=== PATIENT | female | born 1940 | race Caucasian/White ===

== ENCOUNTER 2016-08-17 15:13 | Emergency (ER) | payer MEDICARE, OTHER ==
[2016-08-17 15:25] VITALS: TEMP 97.9
[2016-08-17] MEDS ORDERED: ONDANSETRON INJ 4 MG/2 ML VIAL IV ONE (15:30)
[2016-08-17] MEDS ORDERED: SODIUM CHLORIDE 0.9% (FLUSH) 10 ML SYG IV PRN (15:30)
--- NOTE | 2016-08-17 15:35 | ED.PDOC ---
History of Present Illness - General Source: patient, RN notes reviewed, Vital Signs reviewed Exam Limitations: no limitations - History of Present Illness Initial Comments: Patient reports pressure type chest pain that started about 4am this morning. She thought it was gas or indigestion so she tried antacids without improvement. Reports she is just feeling very weak with it. Had to stop in the middle of getting dressed to rest. At it's worst pain was 9/10, currently 5/10. + nausea with vomiting X2. Denies SOB or diaphoresis. Reports similar episode 15 years ago with negative cardiac work up at that time. Timing/Duration: 7-24 hours Severity/Quality: moderate, ingestion, pressure Location: substernal, epigastric Chest Pain Radiation: no radiation Activities at Onset: sleep Prior Chest Pain/Cardiac Workup: stress test Improving Factors: nothing Worsening Factors: other - activity Nitro Today/Relief: no nitro taken today Aspirin Treatment Today: 325 mg x 1 - X2, provided at home Associated Symptoms: fatigue, nausea/vomiting, weakness <Bina Barahona - Last Filed: 08/17/16 19:01> <Perri Amaya - Last Filed: 08/17/16 22:36> - General Chief Complaint: Chest Pain/TN Stated Complaint: CHEST PAIN Time Seen by Provider: 08/17/16 15:23 - History of Present Illness Allergies/Adverse Reactions: Allergies NO KNOWN ALLERGY Allergy (Unverified 12/21/13 09:21) Home Medications: Ambulatory Orders Furosemide Tab [Lasix Tab] 40 mg PO DAILY 12/21/13 HYDROcodone 10MG/APAP 325MG [[place] 10/325] 1 tab PO PRN 08/17/16 Review of Systems - Review of Systems Constitutional: States: malaise, weakness. Denies: chills, diaphoresis, fever EENTM: States: no symptoms reported Respiratory: States: no symptoms reported. Denies: short of breath Cardiology: States: see HPI, chest pain. Denies: palpitations, syncope Gastrointestinal/Abdominal: States: see HPI, nausea, vomiting. Denies: abdominal pain Musculoskeletal: States: no symptoms reported. Denies: back pain Skin: States: no symptoms reported Neurological: States: no symptoms reported. Denies: headache, numbness, paresthesia, pre-existing deficit, tingling, tremors Endocrine: Denies: no symptoms reported Hematologic/Lymphatic: Denies: no symptoms reported <Bina Barahona - Last Filed: 08/17/16 19:01> Past Medical History (General) - Patient Medical History Hx Cardiac Disorders: Yes Hx Congestive Heart Failure: No Hx Pacemaker: No Hx Hypertension: Yes Hx Diabetes: No Hx MRSA: No Surgical History: appendectomy - Vaccination History Hx Influenza Vaccination: Yes Hx Pneumococcal Vaccination: No - Social History Hx Tobacco Use: No Hx Alcohol Use: No Hx Substance Use: No Hx Physical Abuse: No Hx Emotional Abuse: No <Bina Barahona - Last Filed: 08/17/16 19:01> Family Medical History - Family History Mother Family History: Unknown Living Status: <Bina Barahona - Last Filed: 08/17/16 19:01> Physical Exam - Physical Exam General Appearance: Alert, Comfortable, No apparent distress, Well Developed, Well Groomed, Well Hydrated, Well Nourished Neck: non-tender, full range of motion, supple, normal inspection Respiratory: chest non-tender, lungs clear, normal breath sounds, no respiratory distress, no accessory muscle use Cardiovascular/Chest: normal peripheral pulses, regular rate, rhythm, no edema, no gallop, no JVD, no murmur Peripheral Pulses: dorsalis pedis,right: 2+, dorsalis pedis,left: 2+ Gastrointestinal/Abdominal: normal bowel sounds, non tender, soft, no organomegaly, no pulsatile mass Extremity: normal range of motion, non-tender, normal inspection, no pedal edema Neurologic: no motor/sensory deficits, alert, normal mood/affect, oriented x 3 Skin Exam: normal color, warm/dry Comments: Vital Signs - 24 hr 08/17/16 15:21 Temperature 97.9 F Pulse Rate [ 107 H Left Brachial] Respiratory 20 Rate Blood Pressure 156/98 [Left Arm] O2 Sat by Pulse 97 Oximetry <Bina Barahona - Last Filed: 08/17/16 19:01> Progress - Progress Progress: 08/17/16 16:11 Patient reports pain is almost gone after SLNTG X2. Feels like it wants to go away. Pain is currently /. 08/17/16 17:13 Initial w/u is negative. Will plan to recheck cardiac enzymes @ 18:40 08/17/16 19:[address] Amaya - EKG/XRAY/CT EKG: Sinus, Tachy, no ST T wave changes <Bina Barahona - Last Filed: 08/17/16 19:01> - Progress Progress: 08/17/16 22:29 Three sets of cardiac enzymes 3 hours apart were normal. Patient remained pain- free with stable vitals. Therefore, will discharge Patient home with close follow up with Dr. Barton. Althoug Patient had white blood cells in her urine, it also had epithelial cells, therefore I will not currently treat. Culture pending. 08/17/16 22:32 - Results/Orders Results/Orders: 08/17/16 08/17/16 08/17/16 15:21 15:51 16:21 Temperature 97.9 F Pulse Rate [ 107 H 107 H 100 H Left Brachial] Respiratory 20 16 Rate Blood Pressure 156/98 142/96 [Left Arm] O2 Sat by Pulse 97 93 L Oximetry 08/17/16 08/17/16 08/17/16 16:29 17:16 18:00 Temperature Pulse Rate [ 91 H 94 H Left Brachial] Respiratory 16 16 Rate Blood Pressure 155/94 161/99 [Left Arm] O2 Sat by Pulse 94 L 93 L 94 L Oximetry 08/17/16 08/17/16 19:56 19:57 Temperature 97.9 F Pulse Rate [ 90 90 Left Brachial] Respiratory 18 18 Rate Blood Pressure 152/93 152/93 [Left Arm] O2 Sat by Pulse 96 96 Oximetry 08/17/16 15:30 Telemetry .ONCE Sodium Chloride 0.9% (Flush) [Saline Flush Syringe] 10 ml IV PRN PRN EKG Stat Pulse Ox Stat 08/17/16 22:33 URINE CULTURE W/COLONY COUNT Stat Laboratory Results WBC 8.6 K/mm3 (4.8-10.8) 08/17/16 15:40 RBC 4.59 M/mm3 (4.20-5.40) 08/17/16 15:40 Hgb 13.7 gm/dL (12.0-16.0) 08/17/16 15:40 Hct 41.1 % (36.0-47.0) 08/17/16 15:40 MCV 89.6 fl (81.0-99.0) 08/17/16 15:40 MCH 30.0 pg (27.0-31.0) 08/17/16 15:40 MCHC 33.4 g/dL (33.0-37.0) 08/17/16 15:40 RDW 14.2 % (11.5-14.5) 08/17/16 15:40 Plt Count 261 K/mm3 (130-400) 08/17/16 15:40 MPV 7.8 fl (7.40-10.4) 08/17/16 15:40 Absolute Neuts (auto) 7.10 K/uL (1.8-6.8) H 08/17/16 15:40 Absolute Lymphs (auto) 0.90 K/uL (1.0-3.4) L 08/17/16 15:40 Absolute Monos (auto) 0.40 K/uL (0.2-0.8) 08/17/16 15:40 Absolute Eos (auto) 0.10 K/uL (0.0-0.4) 08/17/16 15:40 Absolute Basos (auto) 0.00 K/uL (0.0-0.1) 08/17/16 15:40 Neutrophils % 82.7 % (42.0-78.0) H 08/17/16 15:40 Lymphocytes % 10.8 % (20.0-50.0) L 08/17/16 15:40 Monocytes % 5.1 % (2.0-9.0) 08/17/16 15:40 Eosinophils % 0.9 % (1.0-5.0) L 08/17/16 15:40 Basophils % 0.5 % (0.0-2.0) 08/17/16 15:40 PT 11.2 SECONDS (9.4-12.5) 08/17/16 15:40 INR 0.990 08/17/16 15:40 PTT (SP) 31.4 SECONDS (25.1-36.5) 08/17/16 15:40 D-Dimer, Quantitative 266 ng/mL (0-230) H* 08/17/16 15:40 Sodium 137 mmol/L (135-145) 08/17/16 15:40 Potassium 3.7 mmol/L (3.6-5.0) 08/17/16 15:40 Chloride 104 mmol/L (101-111) 08/17/16 15:40 Carbon Dioxide 29 mmol/L (21-31) 08/17/16 15:40 Anion Gap 7.7 (12-18) L 08/17/16 15:40 BUN 14 mg/dL (7-18) 08/17/16 15:40 Creatinine 0.59 mg/dL (0.6-1.3) L 08/17/16 15:40 BUN/Creatinine Ratio 23.7 (10-20) H 08/17/16 15:40 Random Glucose 110 mg/dL (70-105) H 08/17/16 15:40 Serum Osmolality 274.9 mOsm/L (275-295) L 08/17/16 15:40 Calcium 8.8 mg/dL (8.4-10.2) 08/17/16 15:40 Magnesium 2.1 mg/dL (1.8-2.5) 08/17/16 15:40 Total Bilirubin 0.6 mg/dL (0.2-1.0) 08/17/16 15:40 Direct Bilirubin < 0.1 mg/dL (0-0.2) 08/17/16 15:40 Indirect Bilirubin 0.5 mg/dL (0.2-0.8) 08/17/16 15:40 AST 44 IU/L (10-42) H 08/17/16 15:40 ALT 44 IU/L (10-60) 08/17/16 15:40 Alkaline Phosphatase 58 IU/L (42-121) 08/17/16 15:40 Creatine Kinase 38 IU/L (26-140) 08/17/16 21:50 CK-MB (CK-2) 1.7 ng/mL (0.0-4.4) 08/17/16 21:50 CK-MB (CK-2) % Not Reportable 08/17/16 21:50 Troponin I < 0.02 ng/mL (0.01-0.05) 08/17/16 21:50 B-Natriuretic Peptide 125.0 pg/ml (0-100) H 08/17/16 15:40 Serum Total Protein 6.7 gm/dL (6.4-8.2) 08/17/16 15:40 Albumin 3.7 g/dl (3.2-5.5) 08/17/16 15:40 Urine Color Yellow (Yellow) 08/17/16 17:30 Urine Appearance Sl cloudy (Clear) 08/17/16 17:30 Urine pH 6.0 (4.5-7.8) 08/17/16 17:30 Ur Specific Roland 1.020 (1.005-1.030) 08/17/16 17:30 Urine Protein 100 mg/dL H 08/17/16 17:30 Urine Glucose (UA) Negative mg/dL (Negative) 08/17/16 17:30 Urine Ketones Negative mg/dL (NEGATIVE) 08/17/16 17:30 Urine Blood Negative (Negative) 08/17/16 17:30 Urine Nitrite Negative 08/17/16 17:30 Urine Bilirubin Negative (NEGATIVE) 08/17/16 17:30 Urine Urobilinogen 0.2 mg/dL (0.2-1.0) 08/17/16 17:30 Ur Leukocyte Esterase Negative (Negative) 08/17/16 17:30 Urine RBC 0-1 /hpf 08/17/16 17:30 Urine WBC 5-10 /hpf H 08/17/16 17:30 Ur Epithelial Cells 10-20 /hpf 08/17/16 17:30 Amorphous Sediment 2+ 08/17/16 17:30 Urine Bacteria 2+ H 08/17/16 17:30 Urine Mucus Moderate 08/17/16 17:30 - EKG/XRAY/CT XRAY: chest - No acute process <Perri Amaya - Last Filed: 08/17/16 22:36> Departure <Bina Barahona - Last Filed: 08/17/16 19:01> - Departure Time of Disposition: 22:34 Diet: resume usual diet <Perri Amaya - Last Filed: 08/17/16 22:36> - Departure Clinical Impression: Chest pain Qualifiers: Chest pain type: unspecified Qualified Code(s): R07.9 - Chest pain, unspecified Disposition: Discharge to Home or Self Care Condition: Fair Departure Forms: ED Discharge - Pt. Copy, Patient Portal Self Enrollment Instructions: DI for Chest Pain Referrals: Gilmer Barton MD [Primary Care Provider] - 1-5 Days Home Medications: Ambulatory Orders Furosemide Tab [Lasix Tab] 40 mg PO DAILY 12/21/13 HYDROcodone 10MG/APAP 325MG [[place] 10/325] 1 tab PO PRN 08/17/16 Additional Instructions: Follow up in ED if symptoms persist or worsen.
[2016-08-17] MEDS: NITROGLYCERIN 0.4 MG 25 EA TAB SL ONE ×2 (15:41→16:02)
--- NOTE | 2016-08-17 16:02 | RAD ---
Study: Single Frontal View of the Chest. Indication:chest pain Comparison: None. Impression: Heart size normal. Lungs clear. No acute osseous abnormality. Electronically signed by: Dave Siegel MD 08/17/2016 3:59 PM CDT
[2016-08-17 22:48] VITALS: O2SAT 95
[2016-08-17 22:49] VITALS: BP 149/93
== END 2016-08-17 22:50 | disposition home or self-care (01) ==
LOC: ER 15:13
DX: R07.9 Chest pain, unspecified (principal); I10 Essential (primary) hypertension
CPT/HCPCS: 36415; 71010; 80048; 80076; 81001; 82550; 82553; 83880; 84484; 85025; 85379; 85610; 85730; 93005; 94760; J2405

== ENCOUNTER → 2016-09-28 | Outpatient (CLI) | payer MEDICARE, OTHER ==
--- NOTE | 2016-09-30 13:18 | RAD ---
EXAM DESCRIPTION: Exams: 1. Hip,Left 2 Views (accession [id number]) 2. Pelvis (accession [id number]) CLINICAL HISTORY: 76 yearsFemale, LEFT HIP PAIN. M25.552 COMPARISON: None. IMPRESSION: An AP view of the pelvis and 2 views of the left hip were obtained. There is no evidence of acute fracture, dislocation, or destructive osseous lesion in the osseous structures of the pelvis. Severe changes of osteoarthritis are demonstrated in the left hip, with narrowing of the joint space and subchondral sclerosis in the acetabulum and femoral head. Subtle areas of subchondral cystic change in the acetabulum. More moderate changes of osteoarthritis are demonstrated in the right hip. Prominent enthesophytes along the left greater trochanter. Moderate degenerative changes in both sacroiliac joints. Electronically signed by: Flo Sanders MD 09/30/2016 1:17 PM CDT Workstation: [id number]
--- NOTE | 2016-09-30 13:18 | RAD ---
EXAM DESCRIPTION: Exams: 1. Hip,Left 2 Views (accession [id number]) 2. Pelvis (accession [id number]) CLINICAL HISTORY: 76 yearsFemale, LEFT HIP PAIN. M25.552 COMPARISON: None. IMPRESSION: An AP view of the pelvis and 2 views of the left hip were obtained. There is no evidence of acute fracture, dislocation, or destructive osseous lesion in the osseous structures of the pelvis. Severe changes of osteoarthritis are demonstrated in the left hip, with narrowing of the joint space and subchondral sclerosis in the acetabulum and femoral head. Subtle areas of subchondral cystic change in the acetabulum. More moderate changes of osteoarthritis are demonstrated in the right hip. Prominent enthesophytes along the left greater trochanter. Moderate degenerative changes in both sacroiliac joints. Electronically signed by: Flo Sanders MD 09/30/2016 1:17 PM CDT Workstation: [id number]
== END | disposition home or self-care (01) ==
LOC: RAD 08:05
PROVIDERS: ATTEND Orthopaedic Surgery
DX: M25.552 Pain in left hip (principal)

== ENCOUNTER → 2016-11-08 | Outpatient (CLI) | payer MEDICARE, OTHER | END | disposition home or self-care (01) | LOC: RESP 09:23 | PROVIDERS: ATTEND Orthopaedic Surgery | DX: Z01.818 Encounter for other preprocedural examination (principal) ==

== ENCOUNTER → 2017-08-05 | Outpatient (CLI) | payer MEDICARE, OTHER | LOC: LAB.O 15:55 | PROVIDERS: ATTEND Orthopaedic Surgery | DX: Z01.818 Encounter for other preprocedural examination (principal) ==

== ENCOUNTER → 2017-09-16 | Outpatient (CLI) | payer MEDICARE, OTHER | LOC: LAB.O 11:23 | PROVIDERS: ATTEND Orthopaedic Surgery | DX: Z01.818 Encounter for other preprocedural examination (principal) ==

== ENCOUNTER 2017-10-01 06:19 | Inpatient (IN) | payer MEDICARE, OTHER ==
--- NOTE | 2017-09-16 16:04 | RAD ---
EXAM DESCRIPTION: Hip,Left 2 Views CLINICAL HISTORY: 77 years Female, PAIN IN LEFT HIP COMPARISON: Radiographs of the left hip dated 09/28/2016. FINDINGS: The visualized bones are well-mineralized. Interval progression of the osteoarthritis with yrwb-uk-[id number] appearance on today's examination. Large subchondral cysts are identified. There is persistent beaking of the medial cortex of the proximal femur. The soft tissues appear grossly unremarkable. IMPRESSION: Progression of the degenerative changes of the left hip in the interim with large subchondral cysts and [id number] appearance. 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 Electronically signed by: Hortencia Mejia MD 09/16/2017 4:03 PM CDT
--- NOTE | 2017-09-16 16:05 | RAD ---
EXAM DESCRIPTION: Pelvis CLINICAL HISTORY: 77 years Female, PAIN IN LEFT HIP COMPARISON: Radiographs of the left dated 09/28/2016. TECHNIQUE: AP radiograph of the pelvis was performed. FINDINGS: The pelvic ring appears grossly intact on this single AP radiograph. No acute fracture or dislocation. Bilateral sacroiliac joints appear normal. Interval progression of degenerative changes of the left hip with [id number] appearance and large subchondral cysts. The visualized lumbo-sacral spine demonstrates mild degenerative changes. IMPRESSION: Single AP radiograph of the pelvis demonstrates grossly intact pelvic ring. Interval progression of degenerative changes of the left hip with [id number] appearance and large subchondral cysts. Electronically signed by: Hortencia Mejia MD 09/16/2017 4:04 PM CDT
--- NOTE | 2017-09-27 11:38 | HP ---
CHIEF COMPLAINT: Left hip pain. HISTORY OF PRESENT ILLNESS: Shellie is a 77-year-old female with a history of pain in the left hip that has been going on for years. She has been getting progressively worse and now has difficulty with her everyday activities. She has a diagnosis of advanced arthritis and because of that, she has requested operative intervention. After discussing the risks, benefits and alternatives to that, the patient has given informed consent. PAST SURGICAL HISTORY: 1. Appendectomy. 2. Knee replacement. MEDICATIONS: 1. Lasix. 2. [place]. ALLERGIES: NO KNOWN DRUG ALLERGIES. CODE STATUS: DNR. IMMUNIZATIONS: Up to date. FAMILY HISTORY: None pertinent to today's complaint. SOCIAL HISTORY: The patient does not drink, smoke or use any illicit drugs. REVIEW OF SYSTEMS: Negative except as indicated in the History of Present Illness. PHYSICAL EXAMINATION: VITAL SIGNS: Blood pressure 152/86. Pulse 76. Height 5'2". Weight 212 pounds. GENERAL: She is an obese female in no acute distress. MENTAL STATUS: The patient is awake, alert, and is able to give a good history and participate in the physical. The patient is oriented to person, place and time. SKIN: Normal tone and turgor. HEENT: Normocephalic, atraumatic. Pupils equal, round and reactive. Mucosal membranes are moist. NECK: Normal range of motion. No thyromegaly, no lymphadenopathy. CHEST: Normal respiratory excursion. CARDIAC: Regular rate and rhythm. No murmurs, rubs or gallops. MUSCULOSKELETAL: Bilateral upper extremities show full active range of motion without pain. She has intact sensation. They are warm and well perfused. There are no deformities and no crepitus. The right lower extremity shows no significant pain with range of motion of the hip. She has no pain with range of motion of the knee. The extremity is warm and well perfused. The left lower extremity shows severe pain with attempted range of motion of the hip. She has 0 degrees of internal rotation and external rotation is limited to about 10 degrees. She has flexion to only about 80 degrees, but does have full extension of the hip. IMAGING: X-rays show severe end-stage arthritis. ASSESSMENT: 1. Arthritis. PLAN: The plan at this point is for total hip arthroplasty. We have discussed the risks, benefits, and alternatives to that and the patient has given informed consent. #[id number] [facility]
--- NOTE | 2017-09-27 17:46 | RAD ---
EXAM DESCRIPTION: Chest,2 Views CLINICAL HISTORY: PREOP COMPARISON: Previous chest x-ray August 17, 2016 TECHNIQUE: PA/lateral FINDINGS: There is no acute appearing cardiac or pulmonary abnormality. Heart size is normal with normal pulmonary vascularity. No pleural effusion or pneumothorax. Lungs are clear with no consolidating infiltrate. Lateral view shows intact sternum and spurring in the T-spine. IMPRESSION: No acute process is identified in the chest. Electronically signed by: Gama Kinney MD 09/27/2017 5:45 PM CDT
[~2017-10-01 06:19] MED LIST: ACETAMINOPHEN IV 1000MG 100 ML ONE; LACTATED RINGERS 1,000 ML ONE; MIDAZOLAM INJ 2 MG/2 ML VIAL ONE; MORPHINE SULF *EPIDURAL* 1 MG/ML VIAL ONE; ROCURONIUM BROMIDE 10 MG/ML VIAL ONE; SODIUM CHL 0.9% 100ML MINI-BAG 100 ML IVPB ONE; SODIUM CHLORIDE 0.9% 100ML 100 ML IVPB ONE; SODIUM CHLORIDE 0.9% 250ML 250 ML ONE; TRANEXAMIC ACID 1,000 MG/10 ML VIAL ONE; VANCOMYCIN HCL INJ 1,000 MG VIAL IVPB ONE; ceFAZolin SODIUM 1 GM VIAL ONE; fentaNYL CITRATE INJ 50 MCG/ML AMP ONE
[2017-10-01] MEDS ORDERED: ceFAZolin SODIUM 1 GM VIAL ONE ×2 (06:28→07:53)
[2017-10-01] MEDS ORDERED: BUPIVACAINE 0.25% W/EPI 50 ML VIAL INJ ONE (06:29)
[2017-10-01] MEDS: VANCOMYCIN HCL INJ 1,000 MG VIAL IVPB ONE ×2 (06:50→09:08)
[2017-10-01] MEDS ORDERED: HYDROcodone 5MG/APAP 325MG 1 EA TAB PO PRN (07:04)
[2017-10-01] MEDS ORDERED: MORPHINE SULFATE INJ 10 MG/ML VIAL IM PRN (07:04)
[2017-10-01] MEDS ORDERED: PROMETHAZINE HCL INJ 12.5 MG in SODIUM CHLORIDE 0.9% 50ML 50 ML IVPB PRN (07:04)
[2017-10-01] MEDS ORDERED: MORPHINE SULFATE INJ 10 MG/ML VIAL IV PRN (07:04)
[2017-10-01] MEDS ORDERED: ALUMINUM & MAGNESIUM HYDROXIDE 30 ML UD PO PRN (07:04)
[2017-10-01] MEDS ORDERED: TRANEXAMIC ACID INJ 1,000 MG in SODIUM CHLORIDE 0.9% 100ML 100 ML IVPB ONE (07:04)
[2017-10-01] MEDS ORDERED: ONDANSETRON INJ 4 MG/2 ML VIAL IV PRN (07:04)
[2017-10-01] MEDS ORDERED: BISACODYL SUPPOSITORY 10 MG PR PRN (07:04)
[2017-10-01] MEDS ORDERED: BENZOCAINE-MENTH LOZ (CEPACOL) 1 EA LOZ MT PRN (07:04)
[2017-10-01] MEDS ORDERED: ACETAMINOPHEN 325 MG TAB PO PRN (07:04)
[2017-10-01] MEDS ORDERED: MAGNESIUM HYDROXIDE 30 ML UD PO PRN (07:04)
[2017-10-01] MEDS ORDERED: ACETAMINOPHEN 500 MG TAB PO PRN (07:04)
[2017-10-01] MEDS ORDERED: ZOLPIDEM TARTRATE 5 MG TAB PO PRN (07:04)
[2017-10-01] MEDS ORDERED: traMADol HCL 50 MG TAB PO PRN (07:04)
[2017-10-01] MEDS ORDERED: NALOXONE HCL INJ 0.4 MG/ML VIAL IV PRN (07:04)
[2017-10-01] MEDS ORDERED: PROMETHAZINE HCL INJ 25 MG in SODIUM CHLORIDE 0.9% 50ML 50 ML IVPB PRN (07:04)
[2017-10-01] MEDS ORDERED: SODIUM CHLORIDE 0.9% (FLUSH) 10 ML SYG IV PRN (07:04)
[2017-10-01] MEDS ORDERED: MORPHINE PCA 1 MG/ML 100 ML BAG IVPB SCH (07:30)
[2017-10-01] MEDS ORDERED: ELECTROLYTE-A 1,000 ML IVS ONE ×2 (08:30→09:42)
[2017-10-01] MEDS ORDERED: ePHEDrine SULF 50 MG/ML IV ONE (10:00)
[2017-10-01] MEDS ORDERED: LIDOCAINE 1% 50 ML VIAL INJ ONE (10:00)
[2017-10-01] MEDS ORDERED: METOCLOPRAMIDE HCL INJ 10 MG/2 ML VIAL IV ONE (10:00)
[2017-10-01] MEDS ORDERED: DEXAMETHASONE INJ 10 MG/ML VIAL IV ONE (10:00)
[2017-10-01] MEDS ORDERED: PROPOFOL 200 MG/20 ML VIAL IV ONE (10:00)
[2017-10-01] MEDS ORDERED: raNITIdine HCL INJ 25 MG/ML VIAL IV ONE (10:00)
--- NOTE | 2017-10-01 11:20 | RAD ---
EXAM DESCRIPTION: Hip,Left 2 Views CLINICAL HISTORY: 77 years Female, post op COMPARISON: None. FINDINGS: Two views of the left hip show postoperative changes related to previous left hip arthroplasty. No loosening or other hardware complication. No periprosthetic fracture. No soft tissue abnormality. IMPRESSION: Uncomplicated postoperative changes in the left hip. Electronically signed by: Nicola Perez MD 10/01/2017 11:16 AM CDT
--- NOTE | 2017-10-01 11:22 | RAD ---
EXAM DESCRIPTION: Pelvis CLINICAL HISTORY: 77 years Female, post op COMPARISON: None. FINDINGS: Two AP views of the pelvis were obtained. Postoperative changes in the left hip are partially visualized without apparent complication. No pelvic fracture or malalignment is seen. There is minimal right hip joint space narrowing. Moderate amount of colonic stool and gas. IMPRESSION: Partially visualized postoperative changes in the left hip without apparent complication. Mild degenerative changes in the right hip. No acute pelvic abnormality. Electronically signed by: Nicola Perez MD 10/01/2017 11:19 AM CDT
--- NOTE | 2017-10-01 14:20 | CONS ---
SUPERVISING PHYSICIAN: Dwayne Loyola MD DATE OF CONSULTATION: 10/01/17 REASON FOR CONSULTATION: Status post left total hip arthroplasty. HISTORY OF PRESENT ILLNESS: Ms. Christiansen is a 77-year-old, female patient who has a longstanding history of ongoing pain in her left hip that has been present for multiple years. Over time, the pain had been progressively worsening to where it was even difficult to do any activities of daily living. She has a history of advanced arthritis. She requested operative intervention for symptom control. She was admitted today for elective left total hip arthroplasty. The patient was seen in immediate postoperative state. The patient was in stable condition, alert. PAST MEDICAL HISTORY: 1. Hypertension. 2. Arthritis. PAST SURGICAL HISTORY: 1. Appendectomy. 2. Left knee replacement. CURRENT MEDICATIONS: 1. [place] 10/325 1 tablet as needed. 2. Lasix 40 mg daily. ALLERGIES: NO KNOWN DRUG ALLERGIES. FAMILY HISTORY: Mother had colon cancer. No other significant history contributing to current complaint. 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 She lives in [place]. She does not smoke, drink or use any illicit drugs. REVIEW OF SYSTEMS: HEENT: No reported nasal congestion, sore throat, earaches, headaches. RESPIRATORY: No shortness of breath, coughing or wheezing. CARDIOVASCULAR: Denies chest pain, palpitations or peripheral edema. GASTROINTESTINAL: She does have some ongoing issues with constipation secondary to narcotic usage for pain control. No reported abdominal pain, no diarrhea, nausea or vomiting. Last bowel movement was two days prior to surgery. GENITOURINARY: Denies dysuria, hematuria or polyuria, but does have some issues with incontinence. MUSCULOSKELETAL: As noted in history of present illness, severe left hip requiring elective left total hip arthroplasty. NEUROLOGIC: Denies seizures, ataxia, headaches, syncopal episodes or other neurological deficits. PHYSICAL EXAMINATION: VITAL SIGNS: Temperature 97.1. Pulse 85. Blood pressure 151/85. Respirations 14. Saturation 98% on room air. Admission weight 100.2 kg. GENERAL: The patient is resting in bed, appears to be in acute distress. She is obese, but well hydrated. She is alert and oriented. HEENT: Tympanic membranes clear bilaterally. Oropharynx is pink, moist without any lesions. NECK: Supple, nontender with full range of motion. No jugular venous distention noted. RESPIRATORY: Lungs clear to auscultation bilaterally without any rhonchi, wheezes, or rales. CARDIOVASCULAR: Regular rate and rhythm without any appreciable murmurs, gallops, or rubs. ABDOMEN: Obese, but soft, nontender. Positive bowel sounds. EXTREMITIES: There is no cyanosis, clubbing or edema. Left hip has a large bandage in place, clean and dry. Distally, pulses are strong and bilaterally 2+ . Brisk capillary refill. LABORATORY: Postoperative CBC is within normal limits with hemoglobin 13.8, hematocrit 41.1, platelet count 258,000. Chemistries show normal electrolytes with potassium 4.5, BUN 26, creatinine 0.76, calcium 9.2. Urinalysis postoperative after cath placement shows trace intact blood, leukocyte esterase , 1 to 3 RBCs, 3 to 5 WBCs, 3 to 5 epithelials and rare bacteria. RADIOLOGY: Preoperative hip x-ray shows progression of degenerative changes of the left hip and large chondral cyst, bone on bone appearance, findings consistent CPPD arthropathy with superimposed osteoarthritis per radiologic interpretation. Preoperative pelvic studies show a single AP view of the pelvis demonstrating gross intact pelvic ring with interval progression of degenerative changes of the left hip with bone on bone appearance with subchondral cyst. Postoperative x-rays of the left hip per radiologic interpretation show uncomplicated postoperative changes in the left hip. Postoperative pelvis x-ray shows partially visualized postoperative changes of the left hip without apparent complication, mild degenerative changes in the right hip, no acute pelvic abnormality. ASSESSMENT: 1. Postoperative day 0 for elective left total hip arthroplasty. 2. Advanced osteoarthritis affecting bilateral hips, left greater than right, requiring operative intervention for symptom control. 3. Hypertension on Lasix. PLAN: We will follow the patient as she progresses through her recovery phase, rehabilitation and physical therapy efforts. I spoke with the family and the patient as well. The plan at this point is to do outpatient rehab through the [facility] once able to continue with outpatient management. Once her medications have been reviewed, I will update those as appropriate. She remains on DVT prophylaxis per protocol. We will anticipate her length of stay to be at least 2 to 3 days until clinically improved. We will continue to follow the patient along with physical therapy and defer management to both physical therapy and Dr. De Leon. Until discharge, we will continue to monitor the patient closely and treat appropriately. #[id number] [facility]
--- NOTE | 2017-10-01 14:56 | PCM.CORE ---
Physician DVT/VTE - Nurse DVT Assessment & Total Each Risk Factor Represents 5 Points: Elective Arthtroplasty Each Risk Factor Represents 3 Points: Age over 75 years, Hx of DVT/PE Each Risk Factor is 1 Point: Obesity (BMI >25) DVT Assessment Score: 12 - 5 or more Very High Risk Treatments: Early Ambulation *, Sequential Compression Device Pharmacological: Enoxaparin 30mg SQ BID
[2017-10-01] MEDS: CELECOXIB 100 MG CAP PO SCH ×2 (14:59→17:44)
[2017-10-01] MEDS: IV SET AND CAP CHANGE INJ INJ SCH (14:59)
[2017-10-01] MEDS ORDERED: ceFAZolin SODIUM 2 GRAMS PREMI 50 ML IVPB ONE ×2 (15:16→19:05)
[2017-10-01] MEDS: DEX 5% W/NACL 0.45% 1000ML 1,000 ML IVS PRN (15:19)
[2017-10-01] MEDS: ceFAZolin SODIUM 2 GRAMS PREMI 2 GM in PREMIX BAG 1 BAG IVPB SCH ×2 (15:20→22:56)
[2017-10-01] MEDS ORDERED: SODIUM CHLORIDE 0.9% 250ML 250 ML ONE (17:36)
[2017-10-01] MEDS ORDERED: VANCOMYCIN HCL INJ 1,000 MG VIAL IVPB ONE (17:36)
[2017-10-01] MEDS: VANCOMYCIN HCL INJ 1,000 MG in SODIUM CHLORIDE 0.9% 250ML 250 ML IVPB SCH (18:27)
[2017-10-01] MEDS ORDERED: ENOXAPARIN SODIUM 30 MG/0.3 ML SYG SUBCU ONE (19:05)
[2017-10-01] MEDS: guaiFENesin ER TAB 600 MG TAB PO SCH (20:39)
[2017-10-01] MEDS: DOCUSATE CALCIUM 240 MG CAP PO SCH (20:40)
[2017-10-01] MEDS: ENOXAPARIN SODIUM 30 MG/0.3 ML SYG SUBCU SCH (21:56)
[2017-10-01] MEDS ORDERED: CALCIUM CARBONATE (ANTACID) 500 MG CHEWABLE TAB PO PRN (22:14)
[2017-10-02] MEDS ORDERED: SODIUM CHLORIDE 0.9% 250ML 250 ML ONE (02:15)
[2017-10-02] MEDS ORDERED: ceFAZolin SODIUM 2 GRAMS PREMI 50 ML IVPB ONE (02:16)
[2017-10-02] MEDS ORDERED: VANCOMYCIN HCL INJ 1,000 MG VIAL IVPB ONE (02:16)
[2017-10-02] MEDS: VANCOMYCIN HCL INJ 1,000 MG in SODIUM CHLORIDE 0.9% 250ML 250 ML IVPB SCH (06:32)
[2017-10-02] MEDS: ceFAZolin SODIUM 2 GRAMS PREMI 2 GM in PREMIX BAG 1 BAG IVPB SCH (06:33)
[2017-10-02] MEDS ORDERED: MAGNESIUM OXIDE 400 MG TAB ONE (06:49)
[2017-10-02] MEDS ORDERED: FUROSEMIDE 40 MG TAB ONE (06:49)
[2017-10-02] MEDS ORDERED: CETIRIZINE HCL 10 MG TAB PO ONE (06:49)
[2017-10-02] MEDS: CELECOXIB 100 MG CAP PO SCH ×2 (07:56→16:56)
[2017-10-02] MEDS: guaiFENesin ER TAB 600 MG TAB PO SCH ×2 (08:00→20:36)
[2017-10-02] MEDS: MAGNESIUM OXIDE 400 MG TAB PO SCH (08:00)
[2017-10-02] MEDS: CETIRIZINE HCL 10 MG TAB PO SCH (08:01)
[2017-10-02] MEDS: FUROSEMIDE 40 MG TAB PO SCH (08:01)
--- NOTE | 2017-10-02 09:25 | PN ---
SUPERVISING PHYSICIAN: Dwayne Loyola MD DATE: 10/02/17 SUBJECTIVE: She states she feels pretty good today. She required morphine several times over night for pain control. However, she sitting up in a chair at this time. She has a little bit of dull pain at the incision site, but otherwise in no distress currently. OBJECTIVE: VITAL SIGNS: Blood pressure 142/82. Heart rate 102. Respiratory rate 16. Temperature 98.8. Oxygen saturation 99%. GENERAL: Ms. Christiansen is a 77-year-old female in no active distress at this time. HEENT: Normocephalic, atraumatic. Pupils are equal and reactive. No nasal drainage. Throat with moist mucosa. NECK: Supple. Midline trachea. No jugular venous distention. CHEST: Symmetrical with equal rise and fall of the chest with inspiration and expiration. Lungs sounds are clear to auscultation bilaterally. CARDIOVASCULAR: Regular rate and rhythm. Normal S1, S2. ABDOMEN: Soft, obese. Positive bowel sounds. No tenderness to palpation. GENITOURINARY: Deferred. EXTREMITIES: Lower extremities with no edema. Left hip with incision with dressing dry and intact. LABORATORY: Hemoglobin 12.1, hematocrit 36.5. ASSESSMENT: 1. Postoperative day #1 for left total hip arthroplasty. 2. Osteoarthritis. 3. Hypertension. PLAN: We will continue recovery with addition of rehab and physical therapy. She seems to be progressing well so far and her pain is controlled. We will defer to Dr. De Leon's postoperative orders for further management at this point. I have encouraged her to ask any questions she may have at anytime. We can also address any new concerns at that point. #[id number] [facility]
[2017-10-02] MEDS: ENOXAPARIN SODIUM 30 MG/0.3 ML SYG SUBCU SCH ×2 (09:37→20:36)
--- NOTE | 2017-10-02 13:55 | OP ---
DATE OF PROCEDURE: 10/01/17 PREOPERATIVE DIAGNOSIS: 1. Osteoarthritis. POSTOPERATIVE DIAGNOSIS: 1. Osteoarthritis. PROCEDURE: 1. Total hip arthroplasty. SURGEON: Albin De Leon MD. FULFILLMENT COORDINATOR: Zelalem Meade CST SA-Luz. ANESTHESIA: General anesthesia. COMPLICATIONS: None. FINDINGS: Severe arthritis of the hip. INDICATION: Mr. Christiansen has a history of severe pain that has been getting progressively worse. Because she has failed conservative measures, she has requested operative intervention. After discussing the risks, benefits and alternatives to that, the patient has given informed consent for total hip arthroplasty. PROCEDURE: The patient was brought to the Operating Room and placed in supine position. General anesthesia was induced and the patient was transitioned into the lateral decubitus position. The leg and hemipelvis were then sterilely prepped and draped. The hip was approached with a lateral incision centered on the greater trochanter and extending both proximally and distally. The iliotibial band was split along the course of its fibers and the anterior one- third of the abductor musculature was elevated. The capsule was incised, the hip was dislocated and the primary femoral neck cut was made. Following that, the acetabulum was identified and the intervening soft tissue was removed. After removal of the soft tissue, sequential reaming was undertaken and a size 49 reamer was used to get to bleeding bony bed. A size 50 trial cup was impacted. Following removal of that, a size 50 Tritanium cup was placed. Two screws were used to augment the fixation and the polyethylene liner was placed. Attention was then focused on the femur. The femur was reamed and broached to a size 8 which fit very well. Trialing was done off the size 8 with a neutral head. Following placement of the broach and trial head, the hip was reduced and taken through a range of motion. There was no evidence of impingement or impending dislocation. The hip was dislocated, the trial components were removed and the final component was impacted. The head was impacted and the hip was reduced. It was taken through a range of motion. The leg lengths were checked and there was no evidence of impending dislocation. The wound was very thoroughly irrigated and the abductor musculature was reapplied in anatomic fashion. Following reapproximation of the abductor musculature, the iliotibial band was closed. The skin and subcutaneous tissues were closed with a combination of running and interrupted suture. Sterile dressings were placed. The patient was turned into the supine position and awoken from anesthesia. The patient was taken to the Recovery Room. POSTOPERATIVE INSTRUCTIONS: The patient will begin partial weightbearing on postoperative day 1. COMPONENTS: [employer] stem size 8, size 50 Tritanium cup and 10 degree lipped liner. #[id number] [facility]
[2017-10-02] MEDS: DEX 5% W/NACL 0.45% 1000ML 1,000 ML IVS PRN (17:24)
[2017-10-02] MEDS: DOCUSATE CALCIUM 240 MG CAP PO SCH (20:36)
[2017-10-03] MEDS: CYCLOBENZAPRINE HCL 10 MG TAB PO PRN (06:28)
--- NOTE | 2017-10-03 08:02 | PN ---
DATE: 10/02/17 SUBJECTIVE: Ms. Christiansen is doing well. She is up to a chair. Her pain is well controlled. OBJECTIVE: Afebrile. Vital signs stable. Dressing is clean, dry and intact. ASSESSMENT: Status post total hip arthroplasty. PLAN: The plan at this point is for her to continue with therapy. #[id number] [facility]
--- NOTE | 2017-10-03 08:04 | PN ---
DATE: 10/03/17 SUBJECTIVE: Ms. Christiansen is doing well and she is requesting anti-inflammatory. OBJECTIVE: Afebrile. Vital signs stable. Wound is clean. There are no signs or symptoms of infection. ASSESSMENT: Status post total hip arthroplasty. PLAN: The plan at this point is for her to continue with physical therapy. We are going to progress her with her weight-bearing as tolerated. #[id number] [facility]
[2017-10-03] MEDS: MAGNESIUM OXIDE 400 MG TAB PO SCH (08:09)
[2017-10-03] MEDS: guaiFENesin ER TAB 600 MG TAB PO SCH ×2 (08:09→20:48)
[2017-10-03] MEDS: CETIRIZINE HCL 10 MG TAB PO SCH (08:09)
[2017-10-03] MEDS: CELECOXIB 100 MG CAP PO SCH (08:09)
[2017-10-03] MEDS: MELOXICAM 7.5 MG TAB PO SCH (08:10)
[2017-10-03] MEDS: SODIUM CHLORIDE 0.9% (FLUSH) 10 ML SYG IV SCH ×2 (08:10→20:50)
[2017-10-03] MEDS: FUROSEMIDE 40 MG TAB PO SCH (08:12)
[2017-10-03] MEDS: OMEPRAZOLE CAP 20 MG CAP PO SCH (09:30)
[2017-10-03] MEDS: ENOXAPARIN SODIUM 30 MG/0.3 ML SYG SUBCU SCH ×2 (09:30→21:38)
--- NOTE | 2017-10-03 11:32 | PN ---
SUPERVISING PHYSICIAN: Dwayne Loyola MD DATE: 10/03/17 SUBJECTIVE: The patient feels a little bit worn out today. Apparently she was quite active yesterday morning with physical therapy and in the afternoon was pretty worn out. She is sitting up in a chair right now and feels a little bit tired. She is still participating in physical therapy. Dr. De Leon did change the hip dressing this morning and it is dry and intact with no visible surrounding erythema. OBJECTIVE: VITAL SIGNS: Blood pressure 113/73. Heart rate 98. Respiratory rate 17. Temperature 98.6. Oxygen saturation 97%. GENERAL: Ms. Christiansen is a 77-year-old female in no active distress at this time. HEENT: Normocephalic, atraumatic. Pupils are equal and reactive. No nasal drainage. Throat with moist mucosa. NECK: Supple. Midline trachea. No jugular venous distention. CHEST: Symmetrical with equal rise and fall of the chest with inspiration and expiration. Lungs sounds are clear to auscultation bilaterally. CARDIOVASCULAR: Regular rate and rhythm. Normal S1, S2. ABDOMEN: Soft. Positive bowel sounds. No tenderness to palpation. GENITOURINARY: Deferred. EXTREMITIES: Lower extremities with no edema. Left hip with incision with dressing dry and intact. No surrounding erythema to edema. NEUROLOGIC: The patient is alert and oriented. ASSESSMENT: 1. Postoperative day #2 for left total hip arthroplasty. 2. Osteoarthritis. 3. Hypertension. PLAN: We will continue physical therapy. Dr. De Leon did change some of her medications. She states she was taking ibuprofen pretty heavily before and it worked quite a bit. I am going to go ahead and place her on omeprazole just for protective measures at this time. No further addition to her therapy right now. #[id number] [facility]
[2017-10-03] MEDS: HYDROcodone 10MG/APAP 325MG 1 EA TAB PO PRN ×2 (16:46→20:55)
[2017-10-03] MEDS: DOCUSATE CALCIUM 240 MG CAP PO SCH (20:50)
[2017-10-04] MEDS: CYCLOBENZAPRINE HCL 10 MG TAB PO PRN (00:23)
[2017-10-04] MEDS: TEMAZEPAM 15 MG CAP PO PRN ×2 (00:38→23:30)
[2017-10-04] MEDS: HYDROcodone 10MG/APAP 325MG 1 EA TAB PO PRN ×4 (04:20→21:09)
[2017-10-04] MEDS: OMEPRAZOLE CAP 20 MG CAP PO SCH (06:41)
[2017-10-04] MEDS: CETIRIZINE HCL 10 MG TAB PO SCH (08:55)
[2017-10-04] MEDS: MAGNESIUM OXIDE 400 MG TAB PO SCH (08:55)
[2017-10-04] MEDS: guaiFENesin ER TAB 600 MG TAB PO SCH ×2 (08:55→21:08)
[2017-10-04] MEDS: MELOXICAM 7.5 MG TAB PO SCH (08:55)
[2017-10-04] MEDS: FUROSEMIDE 40 MG TAB PO SCH (08:55)
[2017-10-04] MEDS: SODIUM CHLORIDE 0.9% (FLUSH) 10 ML SYG IV SCH ×2 (08:58→21:08)
[2017-10-04] MEDS: IV SET AND CAP CHANGE INJ INJ SCH (08:58)
--- NOTE | 2017-10-04 10:28 | PN ---
DATE: 10/04/17 SUBJECTIVE: Ms. Christiansen is doing well and her pain is improving. She is up to a chair at this time. OBJECTIVE: Afebrile. Vital signs stable. Wound is clean. There are no signs or symptoms of infection. ASSESSMENT: Status post total hip arthroplasty. PLAN: The plan at this point is for her to continue with therapy and we will discharge her likely tomorrow if she has met all goals. [facility][id number] [facility]
--- NOTE | 2017-10-04 11:06 | PN ---
SUPERVISING PHYSICIAN: Dwayne Loyola MD DATE: 10/04/17 SUBJECTIVE: The patient is without complaint at this time. She states her pain is controlled and she is not as tired as she was yesterday, able to participate in physical therapy without any difficulty. OBJECTIVE: VITAL SIGNS: Blood pressure 139/83. Heart rate 96. Respiratory rate 16. Temperature 98.0. Oxygen saturation 96%. GENERAL: Ms. Christiansen is a 77-year-old female in no severe distress at this time. NEUROLOGIC: Alert and oriented. CHEST: Lungs sounds are clear to auscultation bilaterally. CARDIOVASCULAR: Regular rate and rhythm. Normal S1, S2. ABDOMEN: Soft, obese. Positive bowel sounds. GENITOURINARY: Deferred. EXTREMITIES: Lower extremities with no edema. Left hip with incision with dressing dry and intact. ASSESSMENT: 1. Postoperative day #3 for left total hip arthroplasty. 2. Osteoarthritis. 3. Hypertension. PLAN: Continue physical therapy. She is progressing pretty well, so I imagine she will go home in the next couple of days. I believe the plan at this point is for her to go home and go to the [facility] for rehab. #[id number] [facility]
[2017-10-04] MEDS: ENOXAPARIN SODIUM 30 MG/0.3 ML SYG SUBCU SCH ×2 (11:34→22:18)
[2017-10-04] MEDS ORDERED: MAGNESIUM HYDROXIDE 30 ML UD PO ONE (21:00)
[2017-10-04] MEDS ORDERED: BISACODYL SUPPOSITORY 10 MG PR ONE (21:00)
[2017-10-04] MEDS: DOCUSATE CALCIUM 240 MG CAP PO SCH (21:08)
[2017-10-05] MEDS: HYDROcodone 10MG/APAP 325MG 1 EA TAB PO PRN ×4 (05:19→19:54)
[2017-10-05] MEDS: OMEPRAZOLE CAP 20 MG CAP PO SCH (06:14)
[2017-10-05] MEDS: CETIRIZINE HCL 10 MG TAB PO SCH (09:24)
[2017-10-05] MEDS: guaiFENesin ER TAB 600 MG TAB PO SCH ×2 (09:24→20:31)
[2017-10-05] MEDS: MELOXICAM 7.5 MG TAB PO SCH (09:24)
[2017-10-05] MEDS: SODIUM CHLORIDE 0.9% (FLUSH) 10 ML SYG IV SCH ×2 (09:25→20:31)
[2017-10-05] MEDS: MAGNESIUM OXIDE 400 MG TAB PO SCH (09:25)
[2017-10-05] MEDS: ENOXAPARIN SODIUM 30 MG/0.3 ML SYG SUBCU SCH ×2 (09:25→21:56)
[2017-10-05] MEDS: FUROSEMIDE 40 MG TAB PO SCH (09:31)
--- NOTE | 2017-10-05 17:25 | PN ---
DATE: 10/05/17 SUPERVISING PHYSICIAN: Delon Reyes M.D. SUBJECTIVE: The patient is doing well. She is sitting in the bedside chair visiting with family. She notes her pain has been well controlled. She is excited about being discharged to continue with physical therapy this coming week at the [facility]. She remains afebrile. OBJECTIVE: VITAL SIGNS: Temperature 98.2, pulse 99, blood pressure 128/79, respirations 16, satting 95% on room air. CHEST: Clear to auscultation bilaterally. HEART: Regular rate and rhythm. ABDOMEN: Soft, non-tender. Positive bowel sounds. EXTREMITIES: No clubbing, cyanosis or edema. The left hip has an island dressing in place which is clean and dry with no signs of infection. Distally pulses are strong, capillary refill is brisk. NEUROLOGIC: She is alert and oriented times three. LABORATORY: No additional laboratory studies completed. ASSESSMENT: 1. Postoperative day #4 for left total hip arthroplasty with a history of osteoarthritis. 2. Hypertension, stable. PLAN: Will continue with physical therapy. Discussed going home tomorrow. She has Xarelto at home already from her having been on Xarelto and changing to Eliquis. Discussed that she has to be on 10 mg the length of duration. I will go ahead and give her a prescription for Xarelto as she has not the right medication and the number of days to cover. She also notes that she has some left over [place] but she will continue with having a prescription filled on Saturday, but until then continue the last of what she has at home if she is discharged tomorrow. She will continue rehabilitation efforts through the [facility] and anticipate hopefully discharging tomorrow. She will need to go home on some Omeprazole as she has been apparently on some Ibuprofen doses in the last month or so. Until discharge, will continue to monitor and treat appropriately. #[id number] [facility]
[2017-10-05] MEDS: DOCUSATE CALCIUM 240 MG CAP PO SCH (20:31)
[2017-10-05] MEDS: TEMAZEPAM 15 MG CAP PO PRN (23:07)
[2017-10-06] MEDS: HYDROcodone 10MG/APAP 325MG 1 EA TAB PO PRN ×2 (02:14→07:40)
[2017-10-06] MEDS: CYCLOBENZAPRINE HCL 10 MG TAB PO PRN (05:09)
[2017-10-06] MEDS: OMEPRAZOLE CAP 20 MG CAP PO SCH (06:13)
[2017-10-06 08:03] VITALS: O2SAT 91
[2017-10-06] MEDS: MAGNESIUM OXIDE 400 MG TAB PO SCH (09:29)
[2017-10-06] MEDS: CETIRIZINE HCL 10 MG TAB PO SCH (09:29)
[2017-10-06] MEDS: ENOXAPARIN SODIUM 30 MG/0.3 ML SYG SUBCU SCH (09:29)
[2017-10-06] MEDS: guaiFENesin ER TAB 600 MG TAB PO SCH (09:29)
[2017-10-06] MEDS: MELOXICAM 7.5 MG TAB PO SCH (09:29)
[2017-10-06] MEDS: FUROSEMIDE 40 MG TAB PO SCH (09:30)
[2017-10-06] MEDS: SODIUM CHLORIDE 0.9% (FLUSH) 10 ML SYG IV SCH (10:58)
[2017-10-06 16:11] VITALS: BP 148/77; TEMP 98.3
--- NOTE | 2017-10-07 09:13 | DS ---
SUPERVISING PHYSICIAN: Delon Reyes MD ADMISSION DIAGNOSIS: 1. Arthritis involving the left hip having failed to respond to outpatient treatment plan. 2. History of hypertension. DISCHARGE DIAGNOSIS: 1. Postoperative day 4 for elective left total hip arthroplasty. 2. Hypertension, stable. REASON FOR HOSPITALIZATION: Ms. Christiansen is a 77-year-old, female patient who has a longstanding history of ongoing pain in her left hip that has been present for multiple years. Over time, the pain had been progressively worsened to where it was even difficult to do any activities of daily living. She has a history of advanced arthritis. She had tried multiple treatment plan as an outpatient which did not contribute to any relief of symptoms. She requested operative intervention for symptom control and on 10/04/17 had elective left total hip arthroplasty without complications. LABORATORY: CBC on admission was within normal limits with white count 6.6, hemoglobin 13.8, hematocrit 41.1. Discharge hemoglobin was 12.1 and hematocrit 36.5. Chemistries showed normal electrolytes with potassium 4.5, BUN 26, creatinine 0.76. Urinalysis on admission showed trace of intact blood. Microscopic showed 1 to 3 RBCs, 3 to 5 WBCs, 3 to 5 epithelials and rare bacteria. Urinalysis on placement of catheter showed trace intact blood, otherwise within normal limits. HOSPITAL COURSE: As noted above, Ms. Christiansen was admitted on 10/01/17 for elective left total hip arthroplasty for severe osteoarthritis. She had not complications postoperatively and did well with her physical therapy and was felt well enough to continue with outpatient management, had good pain control, was afebrile, had a bowel movement and was having no medical complications. PLAN: Ms. Christiansen was discharged on 10/06/17 to continue with outpatient management and physical therapy rehabilitation will start on Saturday after discharge through the [facility] at 10 AM. She was to followup with Dr. De Leon as scheduled. She was to resume her regular diet as tolerated, increase activity as tolerated per physical therapy and utilize a walker at all times. Weight-bearing as tolerated. Wound care per Dr. De Leon's postoperative management instructions provided at discharge. PRESCRIPTIONS AT DISCHARGE: 1. Flexeril 10 mg q.8h. 2. Henderson 10/325 1 q.4h. as needed for pain, written by Dr. De Leon. 3. Xarelto 10 mg daily for additional 29 days. Discharge condition was stable and improved. [facility][id number] [facility]
== END 2017-10-06 13:15 | disposition home or self-care (01) | DRG 470 ==
LOC: AMB 06:19 → MS 11:15 → UNDOADMIN 11:20 → MS 11:20 → UNDOADMIN 10-04 22:20 → UNDODISIN 10-06 13:15
PROVIDERS: ADMIT Orthopaedic Surgery; ATTEND Nurse Practitioner Family
PROC: 0SRB0JA Replacement of Left Hip Joint with Synthetic Substitute, Uncemented, Open Approach (ICD-10-PCS; principal; 2017-10-01 07:00)
DX: M16.0 Bilateral primary osteoarthritis of hip (principal); Z68.41 Body mass index [BMI] 40.0-44.9, adult; I10 Essential (primary) hypertension; K59.03 Drug induced constipation; T40.2X5A Adverse effect of other opioids, initial encounter; E66.9 Obesity, unspecified; Z79.1 Long term (current) use of non-steroidal anti-inflammatories (NSAID); Z79.899 Other long term (current) drug therapy; Z96.652 Presence of left artificial knee joint; Z79.891 Long term (current) use of opiate analgesic; Y92.009 Unspecified place in unspecified non-institutional (private) residence as the place of occurrence of the external cause; Z66 Do not resuscitate

== ENCOUNTER 2018-09-11 19:00 | Emergency (ER) | payer MEDICARE, OTHER ==
[2018-09-11 19:19] VITALS: TEMP 98.6; O2SAT 97
--- NOTE | 2018-09-11 19:53 | ED.PDOC ---
History of Present Illness - General Chief Complaint: Dental/Mouth Stated Complaint: throbbing jaw Time Seen by Provider: 09/11/18 19:49 Source: patient Exam Limitations: no limitations - History of Present Illness Initial Comments: patient comes in today for a couple of day history of severe right jaw pain. Patient stated early on she thought it was her actual tooth or jaw and she's had multiple dental problems. She was seen by her dentist a couple of days ago and placed on Zithromax although he did not see a definite infection or dental abscess. At that time x-rays were fairly normal. Patient states he gave her some Tylenol No. 3 but that has not been helping the pain. Patient states now the pain is more on a sore throat and her lymph nodes that feel like they're enlarged. She had difficult time swallowing today and had considerable mucus in the posterior pharynx yesterday. She's had no fever, chills, cough or cold symptoms otherwise. She denies any chest pain or shortness of breath. Last IBU was 8 am and did help Timing/Duration: yesterday Severity: moderate EENT Location: throat Prearrival Treatment: over the counter meds, prescription meds - tylenol # 3 given to her by dentist Improving Factors: medication - ibuprofen Worsening Factors: nothing Associated Symptoms: nasal congestion/drainage, sore throat Allergies/Adverse Reactions: Allergies NO KNOWN ALLERGY Allergy (Verified 10/01/17 12:00) Home Medications: Ambulatory Orders Furosemide Tab [Lasix Tab] 40 mg PO DAILY 12/21/13 HYDROcodone 10MG/APAP 325MG [Maynard 10/325] 1 tab PO PRN 08/17/16 B-Complex W/ Folic Acid [Super B Complex Maxi] 1 tab PO ISAIAS-OTH-DAY 10/01/17 Cetirizine HCl [ZyrTEC] 10 mg PO DAILY 10/01/17 Guaifenesin [Mucinex] 1,200 mg PO BID 10/01/17 Ibuprofen [Advil] 800 mg PO BID 10/01/17 Cyclobenzaprine HCl [Flexeril] 10 mg PO Q8H PRN #15 tab 10/06/17 HYDROcodone 10MG/APAP 325MG [Maynard 10/325] 1 ea PO Q4H PRN tab 10/06/17 Rivaroxaban [Xarelto] 10 mg PO DAILY #29 tab 10/06/17 Review of Systems - Review of Systems Constitutional: States: no symptoms reported. Denies: chills, fever EENTM: States: see HPI, throat pain, throat swelling Respiratory: States: no symptoms reported. Denies: cough, short of breath Cardiology: States: no symptoms reported. Denies: chest pain, edema, palpitations Gastrointestinal/Abdominal: States: no symptoms reported. Denies: abdominal pain, constipation, diarrhea Genitourinary: States: no symptoms reported Past Medical History (General) - Patient Medical History Hx Seizures: No Hx Stroke: No Hx Asthma: No Hx of COPD: No Hx Cardiac Disorders: Yes Hx Congestive Heart Failure: No Hx Pacemaker: No Hx Hypertension: Yes Hx Diabetes: No Hx Gastroesophageal Reflux: No Hx Renal Disease: No Hx MRSA: No Surgical History: appendectomy, other - Vaccination History Hx Influenza Vaccination: Yes Hx Pneumococcal Vaccination: No - Social History Hx Tobacco Use: No Hx Alcohol Use: No Hx Substance Use: No Hx Physical Abuse: No Hx Emotional Abuse: No Family Medical History - Family History Mother Family History: Unknown Living Status: Physical Exam - Physical Exam General Appearance: Alert, Comfortable, No apparent distress Eye Exam: bilateral normal Ear Exam: bilateral ear: auricle normal, canal normal, TM normal Nasal Exam: normal inspection Throat Exam: pharynx tenderness, other - erythema of posterior pharynx no exudate no edema no dental pain no abscess Neck: lymphadenopathy (R), lymphadenopathy (L) Cardiovascular/Respiratory: regular rate, rhythm, no M/R/G, normal peripheral pulses, no JVD, normal breath sounds, no respiratory distress Abdominal Exam: non-tender Neurologic: alert, normal mood/affect, oriented x 3 Skin Exam: normal color Progress - Results/Orders Results/Orders: 09/11/18 19:30 EKG STAT 09/11/18 20:31 STREP A SCREEN CULTURE Stat Laboratory Results WBC 8.0 K/mm3 (4.8-10.8) 09/11/18 19:54 RBC 4.28 M/mm3 (4.20-5.40) 09/11/18 19:54 Hgb 12.5 gm/dL (12.0-16.0) 09/11/18 19:54 Hct 38.3 % (36.0-47.0) 09/11/18 19:54 MCV 89.4 fl (81.0-99.0) 09/11/18 19:54 MCH 29.1 pg (27.0-31.0) 09/11/18 19:54 MCHC 32.5 g/dL (33.0-37.0) L 09/11/18 19:54 RDW 16.1 % (11.5-14.5) H 09/11/18 19:54 Plt Count 257 K/mm3 (130-400) 09/11/18 19:54 MPV 7.5 fl (7.40-10.4) 09/11/18 19:54 Absolute Neuts (auto) 5.70 K/uL (1.8-6.8) 09/11/18 19:54 Absolute Lymphs (auto) 1.10 K/uL (1.0-3.4) 09/11/18 19:54 Absolute Monos (auto) 0.90 K/uL (0.2-0.8) H 09/11/18 19:54 Absolute Eos (auto) 0.20 K/uL (0.0-0.4) 09/11/18 19:54 Absolute Basos (auto) 0.00 K/uL (0.0-0.1) 09/11/18 19:54 Neutrophils % 71.3 % (42.0-78.0) 09/11/18 19:54 Lymphocytes % 14.3 % (20.0-50.0) L 09/11/18 19:54 Monocytes % 11.8 % (2.0-9.0) H 09/11/18 19:54 Eosinophils % 2.1 % (1.0-5.0) 09/11/18 19:54 Basophils % 0.5 % (0.0-2.0) 09/11/18 19:54 Group A Strep Rapid Negative (NEGATIVE) 09/11/18 20:31 - EKG/XRAY/CT EKG: Sinus, nonspecific ST T wave Chg Comments: HR 89 normal axis Departure - Departure Clinical Impression: Acute pharyngitis Qualifiers: Pharyngitis/tonsillitis etiology: unspecified etiology Qualified Code(s): J02.9 - Acute pharyngitis, unspecified Disposition: Discharge to Home or Self Care Condition: Fair Departure Forms: ED Discharge - Pt. Copy, Patient Portal Self Enrollment Instructions: DI for Mouth Pain Referrals: Gilmer Barton MD [Primary Care Provider] - 1-2 Weeks Home Medications: Ambulatory Orders Furosemide Tab [Lasix Tab] 40 mg PO DAILY 12/21/13 HYDROcodone 10MG/APAP 325MG [Maynard 10/325] 1 tab PO PRN 08/17/16 B-Complex W/ Folic Acid [Super B Complex Maxi] 1 tab PO ISAIAS-OTH-DAY 10/01/17 Cetirizine HCl [ZyrTEC] 10 mg PO DAILY 10/01/17 Guaifenesin [Mucinex] 1,200 mg PO BID 10/01/17 Ibuprofen [Advil] 800 mg PO BID 10/01/17 Cyclobenzaprine HCl [Flexeril] 10 mg PO Q8H PRN #15 tab 10/06/17 HYDROcodone 10MG/APAP 325MG [Maynard 10/325] 1 ea PO Q4H PRN tab 10/06/17 Rivaroxaban [Xarelto] 10 mg PO DAILY #29 tab 10/06/17 Additional Instructions: continue Zpack that was started. no signs of strep or serious bacterial infection at this time. EKG unremarkable. follow up with PCP in am.
[2018-09-11] MEDS: KETOROLAC TROMETHAMINE INJ 30 MG/ML VIAL IM ONE (20:22)
[2018-09-11 20:54] VITALS: BP 170/80
== END 2018-09-11 20:54 | disposition home or self-care (01) ==
LOC: ER 19:00
DX: J02.9 Acute pharyngitis, unspecified (principal); R68.84 Jaw pain; I51.9 Heart disease, unspecified; I10 Essential (primary) hypertension; Z79.899 Other long term (current) drug therapy
CPT/HCPCS: 85025; 87070; 87880; 93005; J1885

== ENCOUNTER → 2020-03-22 | Outpatient (CLI) | payer MEDICARE, OTHER | LOC: GMA MATASK 17:01 | PROVIDERS: ATTEND Family Medicine | DX: I10 Essential (primary) hypertension (principal) ==